=== PATIENT | female | born 1990 | race Caucasian/White ===

== ENCOUNTER 2021-01-11 13:03 | Inpatient (IN) | payer OTHER, SELFPAY ==
[2021-01-11] VITALS (21 sets, daily range): BP systolic 99–131; BP diastolic 61–89; PULSE 63–87; RESP 0–23; TEMP 36.7–37.2; O2SAT 98–100; BMI 20.8
--- NOTE | ~2021-01-11 | MR_ITS ---
EXAMINATION: MR lumbar spine wo con DATE: 01/13/2021 13:27 INDICATION: Paraparesis. Urinary retention. TECHNIQUE: Magnetic resonance imaging (MRI) of the lumbar spine was performed without intravenous con trast. Sequences included sagittal T2-weighted FSE, sagittal T2-weighted FS FSE, sagittal T1-weighted FSE, and axial T2-weighted FSE. COMPARISON: CT lumbar spine 01/11/2021 FINDINGS: There is 11 degrees levoscoliosis of lumbar spine. Vertebral body heights are normal. Inter vertebral disc heights are normal. The distal spinal cord signal intensity is normal. The conus medul verónica is at L1. The following disc levels are specifically discussed: L1-L2: The disc does not extend beyond the endplate margin. There is mild bilateral facet joint osteo arthritis. There is no neural foraminal stenosis. There is no central canal stenosis. L2-L3: The disc does not extend beyond the endplate margin. There is mild bilateral facet joint osteo arthritis. There is no neural foraminal stenosis. There is no central canal stenosis. L3-L4: The disc does not extend beyond the endplate margin. There is mild bilateral facet joint osteo arthritis. There is no neural foraminal stenosis. There is no central canal stenosis. L4-L5: The disc is mildly bulging. There is mild bilateral facet joint osteoarthritis. There is mild bilateral neural foraminal stenosis. There is mild central canal stenosis. L5-S1: The disc is bulging with superimposed left central extrusion. There is mild bilateral facet elaina int osteoarthritis. There is mild left neural foraminal stenosis. There is mild central canal stenosi s. IMPRESSION: 1. Mild lumbar spondylosis. 2. Lumbar levoscoliosis. Reviewed, dictated and finalized at location A. NO DEALER
--- NOTE | ~2021-01-11 | MR_ITS ---
EXAMINATION: MR cervical spine wo con EXAM DATE: 01/12/2021 13:26 INDICATION: Bilateral lower extremity weakness. TECHNIQUE: Multi-sequential, multiplanar MR images of the cervical spine were obtained without contra st. Axial T2, axial T2 MERGE sequence. Sagittal T1, T2, T2 fat saturation images also obtained. Th ere is no prior study for comparison. FINDINGS: Vertebral body and disc heights are well-maintained. Mildly low-lying cerebellar tonsils not meeting criteria for Chiari I malformation. The spinal cord signal intensity and intrinsic morphology is norm al. Mild cervical arthropathy without stenosis, central canal and neural foramen widely patent. Abdi kirti soft tissue is unremarkable. IMPRESSION: 1. Mildly low-lying tonsils, not meeting criteria for Chiari malformation. 2. Mild arthropathy. Reviewed, dictated and finalized at location B. EMENTATION PROJECT COORDINATOR
--- NOTE | ~2021-01-11 | MR_ITS ---
EXAMINATION: MR thoracic spine wo con EXAM DATE: 01/12/2021 13:26 INDICATION: Bilateral lower extremity weakness. TECHNIQUE: Multi-sequential, multiplanar MR images of the thoracic spine were obtained without contra st. Sagittal T1, T2, T2 fat saturation, axial T2 weighted images reviewed. There is no prior study for comparison. FINDINGS: There are scattered focal signal abnormalities consistent with hemangiomata, otherwise with out focal suspicious marrow signal abnormalities. The spinal cord signal intensity and intrinsic morp hology is normal. Thoracic neural foramen and central canal widely patent. Paraspinal soft tissue is unremarkable. Mild lower thoracic facet arthropathy. IMPRESSION: 1. Mild lower thoracic arthropathy. 2. Normal cord signal. Reviewed, dictated and finalized at location B. TURNING MACHINE FEEDER
--- NOTE | ~2021-01-11 | XR_ITS ---
EXAMINATION: XR lumbar puncture diagnostic DATE: 01/13/2021 12:32 INDICATION: Numbness of the legs. TECHNIQUE: The procedure including the risks, benefits, and alternatives was discussed with the patie nt. Risks discussed included spinal headache, cerebrospinal fluid leak, bleeding, and infection. The patient understood the risks and agreed to proceed. A timeout was performed to verify the patient' s name, date of , and procedure to be performed. The skin overlying the L3-L4 level was prepped and draped in usual sterile fashion. Subcutaneous 1% lidocaine was used for local anesthesia. A 22 gauge spinal needle was advanced under fluoroscopic guidance. The needle was removed and the entry s ite was cleaned and dressed. There were no immediate complications. Fluoroscopy exposure time was 0. 1 minutes. The total number of images was 1. FINDINGS: Real-time fluoroscopy demonstrates the needle at the L3-L4 level. The opening pressure was 19 cm water (Normal range is variably defined as 6-20 cm water and up to 25 cm water in obese patient s. Pressure >25 cm water is one of the modified Dandy criteria for idiopathic intracranial hypertensi on). 14 mL of clear, colorless fluid was collected in 4 tubes. IMPRESSION: 1. Successful fluoro-guided lumbar puncture. Reviewed, dictated and finalized at location A. BERRY GROWER
--- NOTE | ~2021-01-11 | CT_ITS ---
EXAMINATION: CT BRAIN W/O DATE: 01/11/2021 17:17 INDICATION: Lower extremity weakness TECHNIQUE: Computed tomography (CT) of the head was performed without intravenous contrast. The dose- length product was 529.67 mGy-cm. Automated exposure control and iterative reconstruction technique w ere employed. COMPARISON: No prior studies for comparison. FINDINGS: Normal brain parenchymal volume for age. Normal yoon-white differentiation. No acute intrac ranial hemorrhage, infarction, mass or mass effect. No ventriculomegaly or midline shift. Midline sagittal images demonstrate a normal corpus callosum, c raniovertebral junction and sella turcica. Basilar cisterns are patent. The cerebellar tonsils extend at least to the level of the foramen magnum and possibly below, although this area is not completely included. Paranasal sinuses and mastoids are pneumatized. No depressed skull fractures. IMPRESSION: 1. No acute intracranial abnormality. 2: Cerebellar tonsils are low-lying, although not completely evaluated. Consider correlation with MRI to exclude Chiari malformation. Reviewed, dictated and finalized at location A. WARE TOOLS ENGINEER IMPRESSION: 1. No acute intracranial abnormality. 2: Cerebellar tonsils are low-lying, although not completely evaluated. Conside r correlation with MRI to exclude Chiari malformation.
--- NOTE | ~2021-01-11 | XR_ITS ---
EXAMINATION: XR chest 2V EXAM DATE: 01/11/2021 13:33 INDICATION: Chest pain today with heaviness, shortness of breath. TECHNIQUE: Frontal and lateral projections of the chest obtained and reviewed. There is no prior jayden dy for comparison. FINDINGS: The lungs are clear. There are no pleural effusions. The cardiomediastinal silhouette is within normal limits. There is no pneumothorax suspected. Mild lower thoracic dextrocurvature. The re are cholecystectomy clips. IMPRESSION: No acute cardiopulmonary findings. Reviewed, dictated and finalized at location B. R TESTER
--- NOTE | ~2021-01-11 | MR_ITS ---
EXAMINATION: MR sacrum wo con DATE: 01/13/2021 13:27 INDICATION: Paraparesis. Urinary retention. TECHNIQUE: Magnetic resonance imaging (MRI) of the sacrum was performed without intravenous contrast. Sequences included coronal oblique (coronal to sacrum) T1-weighted FSE, T2-weighted FSE, and STIR FS E, axial oblique (axial to sacrum) T1-weighted FSE and T2-weighted FS FSE, and sagittal PD-weighted F SE. COMPARISON: CT lumbar spine 01/11/2021 FINDINGS: Bone alignment is normal. No fracture. There is mild lumbar spondylosis. The sacroiliac joints are no rmal. IMPRESSION: 1. Mild lumbar spondylosis. Reviewed, dictated and finalized at location A. ORNE MISSION SYSTEMS SUPERINTENDENT IMPRESSION: 1. Mild lumbar spondylosis.
--- NOTE | ~2021-01-11 | CT_ITS ---
EXAMINATION: CT lumbar spine wo con DATE: 01/11/2021 17:17 INDICATION: Lower extremity weakness. TECHNIQUE: Computed tomography (CT) of the lumbar spine was performed without intravenous contrast. A utomated exposure control and iterative reconstruction technique were employed. The dose-length produ ct was 268.44 mGy-cm. COMPARISON: None FINDINGS: There is 12 degrees levoscoliosis of lumbar spine. Vertebral body heights are normal. Inter vertebral disc heights are normal. The following disc levels are specifically discussed: L1-L2: The disc does not extend beyond the endplate margin. There is mild right and moderate left fac et joint osteoarthritis. There is no neural foraminal stenosis. There is no central canal stenosis. L2-L3: The disc does not extend beyond the endplate margin. There is mild bilateral facet joint osteo arthritis. There is no neural foraminal stenosis. There is no central canal stenosis. L3-L4: The disc does not extend beyond the endplate margin. There is mild bilateral facet joint osteo arthritis. There is no neural foraminal stenosis. There is no central canal stenosis. L4-L5: The disc is bulging. There is mild bilateral facet joint osteoarthritis. There is mild bilater al neural foraminal stenosis. There is mild central canal stenosis. L5-S1: The disc is bulging. There is mild bilateral facet joint osteoarthritis. There is mild bilater al neural foraminal stenosis. There is mild central canal stenosis. IMPRESSION: 1. Mild lumbar spondylosis. 2. Lumbar levoscoliosis. Reviewed, dictated and finalized at location A. T OPERATOR
--- NOTE | ~2021-01-11 | MR_ITS ---
EXAMINATION: MR brain/brain stem wo/w con EXAM DATE: 01/12/2021 13:26 INDICATION: Bilateral lower extremity weakness . TECHNIQUE: Magnetic resonance imaging (MRI) of the brain/brain stem obtained without contrast. Sagit felicita T1, axial diffusion, gradient echo (T2*), T1, T2, FLAIR sequences obtained. Patient was then inj ected with 10 cc intravenous Multihance contrast. Axial and coronal postcontrast T1 weighted sequence s obtained. There is no prior study for comparison. FINDINGS: Low-lying cerebellar tonsils not meeting criteria for Chiari I malformation. There are no a reas of restricted diffusion to suggest acute infarction. There is no acute hemorrhage seen on the T 2*, a hemosiderin sensitive sequence. No intraparenchymal brain mass. The ventricles are normal in s ize. There are no extra-axial collections. Flow voids are seen in the cerebral arteries on the T2-w eighted sequences consistent with their expected patency. The orbits are unremarkable. Soft tissue is unremarkable. There are no areas of abnormal enhancement on the postcontrast images. IMPRESSION: 1. Unremarkable brain MRI examination. Reviewed, dictated and finalized at location B. ENT BILLER
--- NOTE | 2021-01-11 13:09 | ECG_ITS ---
Measurements Intervals [place] Rate: 74 P: 82 WI: 138 QRS: 89 QRSD: 84 T: 38 QT: 386 QTc: 429 Interpretive Statements SINUS RHYTHM NONSPECIFIC T-WAVE ABNORMALITY- INFERIOR LEADS BORDERLINE ECG Electronically Signed On 01-11-2021 13:55:23 MECHANICAL EQUIPMENT TEST ENGINEER by Kulwinder Rodríguez D.O.
[2021-01-11] MEDS: ASPIRIN 81 MG CHEWABLE TABLET 324 MG PO (13:18)
[2021-01-11 13:21] LABS: Basophils Percent Auto 0.3 % (0.2-1.2); Eosinophils Absolute Auto 0.1 K/mm3 (0-0.3); Eosinophils Percent Auto 0.7 % (0-4.4); Hematocrit 40.9 % (37.0-47.0); Hemoglobin 13.6 g/dL (12.0-15.0); Immature Granulocyte Absolute 0.04 K/mm3 (0.00-0.031); Immature Granulocyte Percent A 0.6 % (0-0.5); Lymphocytes Absolute Auto 1.49 K/mm3 (0.9-3.2); Lymphocytes Percent Auto 20.7 % (18.3-44.2); Mean Corpuscular HGB Conc 33.3 g/dl (32-36); Mean Corpuscular Hemoglobin 31.7 pg (26-34); Mean Corpuscular Volume 95.3 fl (80-100); Mean Platelet Volume 9.7 fl (7.4-10.4); Monocytes Absolute Auto 0.4 K/mm3 (0.1-0.6); Monocytes Percent Auto 5.3 % (2.6-8.5); Neutrophils Absolute Auto 5.2 K/mm3 (1.3-6.7); Neutrophils Percent Auto 72.4 % (45.5-73.1); Platelet Count Result 265 k/mm3 (150-375); Red Blood Count 4.29 M/mm3 (4.2-5.4); Red Cell Distribution Width 12.5 % (11.5-14.5); White Blood Count 7.2 K/mm3 (4.5-10.0)
--- NOTE | 2021-01-11 13:31 | ED.CHESTPAIN ---
HPI - Chest Pain General Chief Complaint: Chest Pain <Alma Nix PA-C - Last Filed: 01/11/21 19:21> Stated Complaint: chest pain <Alma Nix PA-C - Last Filed: 01/11/21 19:21> Time Seen by Provider: 01/11/21 13:11 <Alma Nix PA-C - Last Filed: 01/11/21 19:21> Source: patient <JINNY Dunbar Last Filed: 01/11/21 19:21> Mode of arrival: ambulatory <JINNY Dunbar Last Filed: 01/11/21 19:21> Limitations: no limitations <Alma Nix PA-C - Last Filed: 01/11/21 19:21> History of Present Illness HPI narrative: This is a 30 year old female that presents to the ER for chest pain since this morning. Reports a substernal chest pressure that has been constant since onset. Does report it is worse with breathing. Reports some mild shortness of breath with this. Denies fever, cough or lower extremity edema. <Alma Nix PA-C - Last Filed: 01/11/21 19:21> Related Data Home Medications: Home Medications Medication Instructions Recorded Confirmed sertraline [Zoloft] 12.5 mg PO DAILY 01/11/21 <JINNY Dunbar Last Filed: 01/11/21 19:21> Allergies/Adverse Reactions: Allergies Allergy/AdvReac Type Severity Reaction Status Date / Time Sulfa (Sulfonamide Allergy Unknown Verified 01/11/21 13:14 Antibiotics) <JINNY Dunbar Last Filed: 01/11/21 19:21> Review of Systems Review of Systems: Narrative: CONSTITUTIONAL: Denies fever CARDIOVASCULAR: Reports chest pain. Denies palpitations, or edema. RESPIRATORY: Reports dyspnea. Denies cough <JINNY Dunbar Last Filed: 01/11/21 19:21> All systems reviewed & are unremarkable except as noted in HPI and below <JINNY Dunbar Last Filed: 01/11/21 19:21> PMFSH Past Medical History Medical History: Medical History (Updated 01/11/21 @ 18:48 by Alma Nix PA-C) History of depression <Alma Nix PA-C - Last Filed: 01/11/21 19:21> Surgical History Surgical History: Surgical History (Updated 01/11/21 @ 13:45 by Alma Nix PA-C) History of myringotomy History of tonsillectomy <Alma Nix PA-C - Last Filed: 01/11/21 19:21> Social History Social History: Social History (Updated 01/11/21 @ 13:45 by Alma Nix PA-C) Substance use: never <Alma Nix PA-C - Last Filed: 01/11/21 19:21> Exam Narrative: Exam Narrative: GENERAL: Well-appearing, well-nourished, and in no acute distress. HEAD: Normocephalic, atraumatic. EYES: EOMI. ENT: Nares clear, no rhinorrhea or epistaxis. Mucous membranes moist. Oropharynx without tonsillar hypertrophy exudate or other lesions. Bilateral TMs pearly yoon non-bulging NECK: Supple. No adenopathy or masses. No carotid bruits or JVD CHEST: Clear to auscultation. No respiratory distress. No wheezes rales or rhonchi HEART: Regular rate and rhythm. No murmur heard. Normal peripheral pulses. EXTREMITIES: Normal range of motion. No edema. SKIN: Warm, dry, no rash. NEURO: No focal deficits. Alert and oriented x3. PSYCH: Anxious appearing <Alma Nix PA-C - Last Filed: 01/11/21 19:21> Course DROP WIRE BUILDER/PA Physician Supervision For this patient encounter, I reviewed the DROP WIRE BUILDER or PA documentation, treatment plan, and medical decision making; and I had [id number] time with this patient. Patient complains of bilateral leg weakness and numbness starting today. Patient is not lifting left of stretcher. The weakness is possibly functional. Will admit for observation. <Lupe Rico MD - Last Filed: 01/11/21 18:59> Consultations Consultation #1: Spoke with Dr. Pulido about patient and workup. Recommends MRI of the brain, cervical spine, and thoracic spine. He will consult on patient. <Alma Nix PA-C - Last Filed: 01/11/21 19:21> Date: 01/11/21 <Alma Nix PA-C - Last Filed: 01/11/21 19:21> Time: 18:20 <Alma Nix PA-C - Last
[2021-01-11 13:34] LABS: Prothrombin Time 13.7 Seconds (11.1-14.7)
[2021-01-11 13:35] LABS: Anion Gap 5 mmol/L (8-16); Blood Urea Nitrogen 13 mg/dL (7-17); Calcium 9.2 mg/dL (8.4-10.2); Carbon Dioxide 28 mmol/L (22-30); Chloride 107 mmol/L (98-107); Estimated CRCL calculation 92 ml/min; Estimated Glomerular Filt Rate > 60; Glucose 104 mg/dL (65-105); Partial Thromboplastin Time 30.9 SECONDS (22.3-36.8); Potassium 3.8 mmol/L (3.4-5.0); Sodium 140 mmol/L (137-145)
[2021-01-11 13:45] LABS: Troponin I < 0.012 ng/mL (0.000-0.034)
[2021-01-11] MEDS: KETOROLAC 15 MG/ML VIAL (*BKC) IV PUSH (13:47)
[2021-01-11 13:59] LABS: D Dimer 0.27 ug/mL (<0.48)
[2021-01-11 14:10] LABS: Alanine Aminotransferase 12 U/L (4-35); Albumin Level 4.8 g/dL (3.5-5.1); Alkaline Phosphatase 67 U/L (38-126); Aspartate Amino Transferase 23 U/L (14-36); Bilirubin,Total 0.7 mg/dL (0.2-1.3); Lipase 72 U/L (23-300)
--- NOTE | 2021-01-11 16:04 | PC.NURSE ---
3 hr troponin sent to lab.
--- NOTE | 2021-01-11 16:10 | PC.NURSE ---
Meds given po. Pt states at this time she is unable to feel my legs . Pt will not, states is unable, to wiggle toes or follow commands for pushes and pulls. Pt states this has occurred in the past but isn't sure what caused it then either. HUNTER Mancuso, made aware.
[2021-01-11] MEDS: ACETAMINOPHEN 500 MG TABLET 1000 MG PO (16:13)
[2021-01-11 16:33] LABS: Troponin I < 0.012 ng/mL (0.000-0.034)
--- NOTE | 2021-01-11 18:13 | PC.NURSE ---
Pt resting on stretcher. States still is unable to use her legs. States the last time my legs went numb she spent a week in the hospital learning to walk again . States this was at [facility].
--- NOTE | 2021-01-11 18:19 | PC.NURSE ---
Awaiting return call from Dr. Blanco
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
--- NOTE | 2021-01-11 19:10 | PC.NURSE ---
Assumed care of pt at this time, pt is alert and upright on stretcher, hospitalist at bedside discussing POC. Pt on tele monitor, VSS.
--- NOTE | 2021-01-11 20:20 | PC.NURSE ---
This patient, Lavelle Waddell, was admitted to [facility] Surg Room 316-01. Patient/family oriented to hospital policies and general routines including ID bracelet, bed and alarms, visiting hours, pain management, procedures, bathroom and other care routines, personal items, smoking policy, room service/diet, and visiting hours. Information on how to activate the Rapid Response Team has been discussed. Patient/Family are encouraged to report perceived risks to care and to ask questions if they do not understand what they are told or what they should do.
[2021-01-12] VITALS (7 sets, daily range): BP systolic 99–106; BP diastolic 54–68; PULSE 58–104; RESP 16; TEMP 36.2–37.1; O2SAT 96–100
[2021-01-12] MEDS: ALPRAZolam (*CRX) 0.25 MG TABLET PO (11:06)
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
--- NOTE | 2021-01-12 14:58 | PM.IMPN ---
Progress Note: A&P Assessment and Plan (1) Bilateral leg weakness: Code(s): R29.898 - Other symptoms and signs involving the musculoskeletal system Status: Acute Assessment and Plan: This developed while the patient was in the emergency department and suspect this may be psychosomatic as MRI of brain, c-spine, and t-spine and CT lumbar spine grossly unremarkable for acute findings. Dr. Pulido (neurology) was consulted by the ED provider and appreciate input. Discussed with him today and recommends lumbar puncture for further evaluation Lumbar puncture to be done per Neurology Will do PT/OT Monitor overnight (2) Abnormal brain CT: Code(s): R90.89 - Other abnormal findings on diagnostic imaging of central nervous system Status: Acute Assessment and Plan: Brain CT shows low lying cerebellar tonsils although inadequately evaluated. Brain MRI today shows mildly low lying cerebellar tonsils, but does not meet criteria for Chiari malformation F/u as outpatient (3) Atypical chest pain: Code(s): R07.89 - Other chest pain Status: Acute Assessment and Plan: Most likely related to anxiety. EKGs unremarkable and troponins are negative x2. Tele was grossly unremarkable with sinus rhythm D/c tele (4) Depression with anxiety: Code(s): F41.8 - Other specified anxiety disorders Status: Inactive Assessment and Plan: Patient was recently started on Zoloft however stopped taking it due to side effects. She obviously suffers from pretty significant depression and anxiety, denying harmful thoughts this stay. Encouraged her to continue seeing her counselor and to follow-up as soon as possible with her primary care provider to see if she may be started on a different medication. Subjective Date/time seen: 01/12/21 14:58 Interval history: Patient is a 30-year-old female with history of depression and anxiety with history of suicide attempt and remote history of self-mutilation who is seen in follow up for further evaluation for sudden onset of paraparesis. Patient feels about the same as yesterday. She describes decrease sensation in lower legs up to hips; describes severe pain/burning/tingling as if she had been sitting all day. No symptoms of saddle anesthesia or loss of bowel or bladder function. Otherwise no complaints. Denies recent illness/infection, f/c/s, headaches, dizziness, lightheadedness, changes in v/h, current cp/palpitations, sob/cough, n/v/d/c, abd pain, changes in BMs, dysuria Review of Systems Review of Systems: All systems reviewed & are unremarkable except as noted in HPI and below Exam Narrative: Exam Narrative: General: Patient resting supine in bed in no acute distress. HEENT: Normocephalic, EOMI, oral mucosa moist. Cardiovascular: Rate and rhythm are regular. No notable murmur, rub, or gallop. Respiratory: Lungs clear to auscultation all marti. Non-labored breathing. Abdomen: Soft, non-tender, non-distended, bowel sounds present. Extremities: Peripheral pulses intact. No edema. Neuro: A&Ox4. Speech is clear. No facial asymmetry. Strength in upper extremities is 5/5. She does not move her lower extremities and allows them to fall to gravity when passively lifted/dropped. Objective Data Vital Signs Vital Signs: Last Vital Signs Temp 97.1 F L 01/12/21 06:00 Pulse 104 H 01/12/21 11:08 Resp 16 01/12/21 06:00 BP 99/54 L 01/12/21 06:00 Pulse Ox 100 01/12/21 06:00 Intake/Output Intake/Output: Intake & Output 01/09/21 01/10/21 01/11/21 01/12/21 23:59 23:59 23:59 23:59 Intake Total 220 Output Total 900 Balance -680 Meds/Results Medications: Active Medications Generic Name Dose Route Start Last Admin Trade Name Freq PRN Reason Stop Dose Admin Alpraz
[2021-01-13] VITALS (7 sets, daily range): BP systolic 100–116; BP diastolic 49–73; PULSE 61–89; RESP 16–20; TEMP 36.5–37.2; O2SAT 96–100
[2021-01-13] MEDS: ACETAMINOPHEN 325 MG TABLET 650 MG PO ×2 (03:57→13:56)
--- NOTE | 2021-01-13 05:39 | PC.NURSE ---
MD Cook notified that the patient has been unable to void. Has not voided since yesterday and greater then 12 hrs. Pt states that she does not feel the need to urinate. RN bladder scanned patient and bladder scan showed greater then 450ml in bladder. Patient assisted to commode, still unable to urinate. MD Cook stated okay to place a murguia. 550ml output from murguia.
--- NOTE | 2021-01-13 08:43 | PM.IMPN ---
Progress Note: A&P Assessment and Plan (1) Bilateral leg weakness: Code(s): R29.898 - Other symptoms and signs involving the musculoskeletal system Status: Acute Assessment and Plan: This developed while the patient was in the emergency department and suspect this may be psychosomatic as MRI of brain, c-spine, and t-spine and CT lumbar spine grossly unremarkable for acute findings. Retention and vague sensation abnormalities in inner thighs of concern. LOUISA of concern but less likely given CT lumbar spine findings; will consider lumbar MRI if Neurology agreeable. Guillain [place] on differential, although seems less likely given acute onset of symptoms and not progressive. Dr. Pulido (neurology) was consulted by the ED provider and appreciate input. She is to have Lumbar Puncture today per Neurology. Lumbar puncture to be done per Neurology Will discuss further diagnostics, including lumbar spine MRI with Neurology Will do voiding trial today Will do PT/OT Monitor overnight (2) Abnormal brain CT: Code(s): R90.89 - Other abnormal findings on diagnostic imaging of central nervous system Status: Acute Assessment and Plan: Brain CT shows low lying cerebellar tonsils although inadequately evaluated. Brain MRI today shows mildly low lying cerebellar tonsils, but does not meet criteria for Chiari malformation F/u as outpatient (3) Atypical chest pain: Code(s): R07.89 - Other chest pain Status: Acute Assessment and Plan: Most likely related to anxiety. EKGs unremarkable and troponins are negative x2. Tele was grossly unremarkable with sinus rhythm D/c tele (4) Depression with anxiety: Code(s): F41.8 - Other specified anxiety disorders Status: Inactive Assessment and Plan: Patient was recently started on Zoloft however stopped taking it due to side effects. She obviously suffers from pretty significant depression and anxiety, denying harmful thoughts this stay. During stay, she was encouraged to continue seeing her counselor and to follow-up as soon as possible with her primary care provider to see if she may be started on a different medication. Subjective Date/time seen: 01/13/21 08:43 Interval history: Patient is a 30-year-old female with history of depression and anxiety with history of suicide attempt and remote history of self-mutilation who is seen in follow up for further evaluation for sudden onset of paraparesis. Patient feels about the same as yesterday, although she was noted to be retaining and had Mederos placed. She describes throbbing and decreased sensation throughout her LE, but also notices tingling in her inner thighs; denies overt saddle anesthesia or bowel incontinence. Her decreased sensation is still from her belt line down to feet. She notes blunted sensation b/l. She reports having an MRI of lumbar spine roughly 6 months ago but does not think there were any alarming findings on this. She has a headache today. Otherwise no complaints. Denies recent illness/infection, f/c/s, dizziness, lightheadedness, changes in v/h, current cp/palpitations, sob/cough, n/v/d/c, abd pain Review of Systems Review of Systems: All systems reviewed & are unremarkable except as noted in HPI and below Exam Narrative: Exam Narrative: General: Patient resting supine in bed in no acute distress, lights off, hands covering face. Appears comfortable although covers eyes from the windows during conversation HEENT: Normocephalic, EOMI, oral mucosa moist. Cardiovascular: Rate and rhythm are regular. No notable murmur, rub, or gallop. Respiratory: Lungs clear to auscultation all marti. Non-labored breathing. Abdomen: Soft, non-tender, non-distended, bowel sounds present. Extremities: Peripheral pulses intact. No
[2021-01-13 13:02] LABS: Glucose CSF 49 mg/dL (40-70); Total Protein CSF 28 mg/dL (12-60)
[2021-01-13 13:17] LABS: Appearance CSF Clear (Clear); CSF source CSF
[2021-01-13 13:18] LABS: Color CSF Colorless (Colorless); Nucleated Cell CSF 0 /uL (0-5); Red Blood Cell CSF 0 (0-2)
--- NOTE | 2021-01-13 14:15 | WPDNEUROPN ---
Progress Note: A&P Assessment and Plan (1) Abnormal brain CT: Code(s): R90.89 - Other abnormal findings on diagnostic imaging of central nervous system Status: Acute (2) Atypical chest pain: Code(s): R07.89 - Other chest pain Status: Acute (3) Bilateral leg weakness: Code(s): R29.898 - Other symptoms and signs involving the musculoskeletal system Status: Acute Additional Plan Paresis await the spinal fluid studies and further discussion with the patient Review of Systems Review of Systems: All systems reviewed & are unremarkable except as noted in HPI and below Objective Data Vital Signs Vital Signs: Vital Signs - 24 hr 01/12/21 22:00 01/13/21 01:30 01/13/21 06:00 Temperature 36.4 C L 37.1 C 36.7 C Pulse Rate 80 84 75 Respiratory Rate 16 20 16 Blood Pressure 106/58 L 109/65 110/49 L Pulse Oximetry 96 99 96 01/13/21 10:03 01/13/21 11:49 01/13/21 12:20 Temperature Pulse Rate 75 63 Respiratory Rate 20 20 Blood Pressure 109/73 116/69 Pulse Oximetry 97 100 97 Intake/Output Intake/Output: Intake & Output 01/10/21 01/11/21 01/12/21 01/13/21 23:59 23:59 23:59 23:59 Intake Total 670 100 Output Total 900 Balance -230 100 Meds/Results Medications: Active Medications Generic Name Dose Route Start Last Admin Trade Name Freq PRN Reason Stop Dose Admin Acetaminophen 650 mg 01/13/21 03:14 01/13/21 13:56 Acetaminophen 325 Mg Tablet PO 650 mg Q4H PRN Administration Headache Alprazolam 0.25 mg 01/12/21 08:38 01/12/21 11:06 Alprazolam (*Crx) 0.25 Mg Tablet PO 0.25 mg ONCE PRN Administration Anxiety Radiology Results: ITS Impressions Chest X-Ray 01/11/21 13:34 IMPRESSION: No acute cardiopulmonary findings. Lumbar Spine CT 01/11/21 17:18 IMPRESSION: 1. Mild lumbar spondylosis. 2. Lumbar levoscoliosis. Head CT 01/11/21 17:20 IMPRESSION: 1. No acute intracranial abnormality. 2: Cerebellar tonsils are low-lying, although not completely evaluated. Consider correlation with MRI to exclude Chiari malformation. Brain MRI 01/12/21 13:57 IMPRESSION: 1. Unremarkable brain MRI examination. Cervical Spine MRI 01/12/21 14:06 IMPRESSION: 1. Mildly low-lying tonsils, not meeting criteria for Chiari malformation. 2. Mild arthropathy. Thoracic Spine MRI 01/12/21 14:08 IMPRESSION: 1. Mild lower thoracic arthropathy. 2. Normal cord signal. Lumbar Puncture Fluoroscopy 01/13/21 12:36 IMPRESSION: 1. Successful fluoro-guided lumbar puncture. Lumbar Spine MRI 01/13/21 13:59 IMPRESSION: 1. Mild lumbar spondylosis. 2. Lumbar levoscoliosis. Sacrum/Coccyx MRI 01/13/21 14:03 IMPRESSION: 1. Mild lumbar spondylosis. Labs Labs: Laboratory Results - last 24 hr 01/13/21 01/13/21 12:03 12:03 CSF Source Csf CSF Appearance Clear CSF Color Colorless CSF RBC 0 CSF Tot Nucleated Cells 0 CSF Monocytes CSF Glucose 49 CSF Total Protein 28 Quality VTE Prophylaxis VTE prophylaxis: mechanical ordered
--- NOTE | 2021-01-13 23:27 | PC.NURSE ---
Arvin Alegre and I got Aeriel up to attempt to void after very little output noted today. She got up to commode with 2x assist, legs shaky, said feeling of tv static snow in legs... was not able to describe it further, stated she could feel us touching her feet and had weak push, she voided 400ml of dark urine on the commode after approximately 15 minutes of trying, we kept the sink on and left the room for privacy. -AEW RN
[2021-01-14 06:00] VITALS: BP 108/63; PULSE 69; RESP 20; TEMP 36.9; O2SAT 98
--- NOTE | 2021-01-14 09:22 | PCPTNOTE ---
Attempted PT treatment. Pt sleeping and unable to arouse. Ruth ESPINOZA aware. Will try again later today.
[2021-01-14 09:30] VITALS: BP 100/55; PULSE 81; RESP 14; TEMP 35.8; O2SAT 98
--- NOTE | 2021-01-14 11:19 | PM.IMPN ---
Progress Note: A&P Assessment and Plan (1) Bilateral leg weakness: Code(s): R29.898 - Other symptoms and signs involving the musculoskeletal system Status: Acute Assessment and Plan: This developed while the patient was in the emergency department and suspect this may be psychosomatic as MRI of brain and entire spine grossly unremarkable for acute findings. Lumbar puncture per Dr. Pulido rec is grossly unremarkable with some results pending; gram stain notes gram positive cocci, felt to be likely contaminate. She has urinated since Mederos removed. LOUISA on differential but less likely given imaging results. Guillain [place] on differential, although seems less likely given acute onset of symptoms and not progressively worsening. Dr. Pulido (neurology) was consulted by the ED provider and appreciate input. Discussed with him who will talk to patient today about recent results; considering discharge home. CC also following for any outpatient psych needs Continue PT/OT Possible discharge today if okay from neuro standpoint (2) Abnormal brain CT: Code(s): R90.89 - Other abnormal findings on diagnostic imaging of central nervous system Status: Acute Assessment and Plan: Brain CT shows low lying cerebellar tonsils although inadequately evaluated. Brain MRI today shows mildly low lying cerebellar tonsils, but does not meet criteria for Chiari malformation F/u as outpatient (3) Atypical chest pain: Code(s): R07.89 - Other chest pain Status: Acute Assessment and Plan: Most likely related to anxiety. EKGs unremarkable and troponins are negative x2. Tele was grossly unremarkable with sinus rhythm (4) Depression with anxiety: Code(s): F41.8 - Other specified anxiety disorders Status: Inactive Assessment and Plan: Patient was recently started on Zoloft however stopped taking it due to side effects. She obviously suffers from pretty significant depression and anxiety, denying harmful thoughts this stay. No SI/HI ideations or thoughts of harming self/others currently During stay, she was encouraged to continue seeing her counselor and to follow-up as soon as possible with her primary care provider to see if she may be started on a different medication. Subjective Date/time seen: 01/14/21 11:19 Interval history: Patient is a 30-year-old female with history of depression and anxiety with history of suicide attempt and remote history of self-mutilation who is seen in follow up for further evaluation for sudden onset of paraparesis. Received call from nursing this am stating patient was unarousable with stable VS and reactive pupils, however, prior to arrival to bedside, nursing reports patient now awake after ammonia placed under nose; she was working with therapy at time of visit. Patient thinks her legs feel like TV static ; when asked if this is better or worse then yesterday, she tells me I'd rather take numb then this . When asked further, she notes maybe more increased sensation in her legs. The numbness/tingling still is at her belt line. She still feels constipated. Nursing notes show she urinated ~400 ccs last night. She does mention last night was rough mentally ; upon further questioning she denies any SI/HI or thoughts of harming self/others currently. She notes she does have a counselor she follows up with. Other symptoms today include racing heart, diaphoresis, and some dizziness, but no cp changes in v/h, severe headache/neck pain today. She does have some mild abdominal pain in left abdomen and notes she is constipated, but does not wish to have a laxative. Otherwise no complaints. Denies recent f/c, sob/cough, n/v/d. Review of Systems Review of Systems: All systems reviewed & are unremarkable except as noted in H
[2021-01-14 14:19] VITALS: BP 100/72
--- NOTE | 2021-01-14 14:28 | PM.DS ---
DS: Admitting Diagnosis Admitting Diagnosis Admitting Diagnosis: CP, paraparesis/LE weakness DS: Discharge Diagnosis Discharge Diagnosis (1) Bilateral leg weakness: Code(s): R29.898 - Other symptoms and signs involving the musculoskeletal system Status: Acute Assessment and Plan: This developed while the patient was in the emergency department and suspect this may be psychosomatic as MRI of brain and entire spine grossly unremarkable for acute findings. Lumbar puncture per Dr. Pulido rec is grossly unremarkable with some results pending; gram stain notes gram positive cocci, felt to be likely contaminate. She has urinated since Mederos removed. LOUISA on differential but less likely given imaging results. Guillain [place] on differential, although seems less likely given acute onset of symptoms and not progressively worsening. Dr. Pulido (neurology) was consulted by the ED provider and appreciate input. Discussed with him who will talk to patient today about recent results; considering discharge home. CC also following for any outpatient psych needs Continue PT/OT Possible discharge today. Okay from Neuro standpoint (2) Abnormal brain CT: Code(s): R90.89 - Other abnormal findings on diagnostic imaging of central nervous system Status: Acute Assessment and Plan: Brain CT shows low lying cerebellar tonsils although inadequately evaluated. Brain MRI today shows mildly low lying cerebellar tonsils, but does not meet criteria for Chiari malformation F/u as outpatient (3) Atypical chest pain: Code(s): R07.89 - Other chest pain Status: Acute Assessment and Plan: Most likely related to anxiety. EKGs unremarkable and troponins are negative x2. Tele was grossly unremarkable with sinus rhythm (4) Depression with anxiety: Code(s): F41.8 - Other specified anxiety disorders Status: Inactive Assessment and Plan: Patient was recently started on Zoloft however stopped taking it due to side effects. She obviously suffers from pretty significant depression and anxiety, denying harmful thoughts this stay. No SI/HI ideations or thoughts of harming self/others currently During stay, she was encouraged to continue seeing her counselor and to follow-up as soon as possible with her primary care provider to see if she may be started on a different medication. DS: Summary Hospital Course Reason for hospitalization: CP, lower extremity weakness Hospital Course: Date of arrival: 01/11/21 Date of discharge: 01/14/21 Patient is a 30-year-old female with history of depression and anxiety with history of suicide attempt and remote history of self-mutilation who presented to the emergency department on 01/11 with complaints of chest pain. While sitting at her desk at work today she developed sudden onset of substernal chest pressure and fleeting sharp pains under her left breast. While in the ED, work up was grossly unremarkable. Prior to discharge from the ED, patient suddenly developed onset of lower extremity weakness with inability to move her legs at all and slight numbness/blunted sensation. Head Ct was unremarkable. Dr. Pulido (neurology) consulted for further input. Patient admitted under this setting. Please see H&P for further details. Patient was admitted to the hospitalist service for further management/treatment. During hospital course, brain and entire spine MRI was grossly unremarkable for etiology of her sudden onset of symptoms. Guillian [place] syndrome was of concern, but felt to be less likely given sudden onset and non-progressive nature of symptoms. Lumbar puncture obtained per request of Dr. Pulido and preliminary results were, again, grossly unremarkable. It was felt likely that her symptoms were likely psychosomatic in nature. She de
[2021-01-14] MEDS: ACETAMINOPHEN 325 MG TABLET 650 MG PO (15:32)
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
--- NOTE | 2021-01-14 16:03 | WPDNEUROPN ---
Progress Note: A&P Assessment and Plan (1) Abnormal brain CT: Code(s): R90.89 - Other abnormal findings on diagnostic imaging of central nervous system Status: Acute (2) Atypical chest pain: Code(s): R07.89 - Other chest pain Status: Acute (3) Bilateral leg weakness: Code(s): R29.898 - Other symptoms and signs involving the musculoskeletal system Status: Acute Additional Plan stable long discussion about the pros and cons of the neurological deficit without any obvious etiology patient will benefit from the physical therapy thorough counseling was provided Review of Systems Review of Systems: All systems reviewed & are unremarkable except as noted in HPI and below Exam Const: General: cooperative, healthy appearing, comfortable and no acute distress Nutritional Appearance: average body habitus Limitations: no limitations Eyes: General: appearance normal, both eyes and all related structures Alignment and Position: alignment normal Periorbital: periorbital findings normal Eyelids: eyelids normal Conjunctivae: conjunctivae normal Sclera: sclerae normal Cornea: corneas normal Pupils: Equal, round and reactive pupils present EOM: EOMs intact bilaterally Neck: Neck: full ROM and no lymphadenopathy Chest: Chest palpation & inspection: normal inspection of the chest Cardio: Rate: regular rate Rhythm: regular rhythm GI: Auscultation: normal bowel sounds Skin: General skin exam: no rashes or lesions noted Neuro: General: patient oriented x3 Cranial nerves: Yes CN's II-XII intact bilaterally Cognition (Neuro): normal cognition Speech: normal speech Gait exam (Neuro): Antalgic gait present, Ataxic gait present, Wide-based gait present and Assisted gait required Motor exam (neuro): Abnormal motor strength present Sensory Exam: Normal double simultaneous stimulation for sensation Deep tendon reflexes (DTR's): Right triceps reflex intensity grade: 1+, Left triceps reflex intensity grade: 1+, Rt Biceps (C5, C6): 1+, Left biceps reflex intensity grade: 1+, Right brachioradialis reflex intensity grade: 1+, Left brachioradialis reflex intensity grade: 1+, Right patellar reflex intensity grade: 1+, Left patellar reflex intensity grade: 1+, Right ankle reflex intensity grade: 1+ and Left ankle reflex intensity grade: 1+ Plantar Reflex Responses: downgoing: bilateral Psych: Appearance: well kempt Mental Status: mental status grossly normal Speech and movement: Normal speech and movement present Affect: normal affect Attitude: cooperative Thought process: Normal thought process present Objective Data Vital Signs Vital Signs: Vital Signs - 24 hr 01/13/21 22:00 01/14/21 06:00 01/14/21 09:30 Temperature 36.5 C 36.9 C 35.8 C L Pulse Rate 89 69 81 Respiratory Rate 16 20 14 Blood Pressure 106/66 108/63 100/55 L Pulse Oximetry 100 98 98 01/14/21 14:19 Temperature Pulse Rate Respiratory Rate Blood Pressure 100/72 Pulse Oximetry Intake/Output Intake/Output: Intake & Output 01/11/21 01/12/21 01/13/21 01/14/21 23:59 23:59 23:59 23:59 Intake Total 670 220 420 Output Total 900 200 400 Balance -230 20 20 Meds/Results Medications: Active Medications Generic Name Dose Route Start Last Admin Trade Name Freq PRN Reason Stop Dose Admin Acetaminophen 650 mg 01/13/21 03:14 01/14/21 15:32 Acetaminophen 325 Mg Tablet PO 650 mg Q4H PRN Administration Headache Alprazolam 0.25 mg 01/12/21 08:38 01/12/21 11:06 Alprazolam (*Crx) 0.25 Mg Tablet PO 0.25 mg ONCE PRN Administration Anxiety Radiology Results: ITS Impressions Chest X-Ray 01/11/21 13:34 IMPRESSION: No acute cardiopulmonary findings. Lumbar Spine CT 01/11/21 17:18 IMPRESSION: 1. Mild lumbar spondylosis. 2. Lumbar levoscoliosis. Head CT 01/11/21 17:20 IMPRESSION: 1. No acute intracranial abnormality. 2: Cerebellar tonsils are low-lying, although not comple
[2021-01-21 06:36] LABS: Albumin, CSF 19.7 mg/dL (8.0-42.0); Albumin, Serum 4.3 g/dL (3.5-5.2); IgG Index, CSF 0.51 (<0.66); IgG, CSF 2.4 mg/dL (0.8-7.7); Immunoglobulin G, Serum 1020 mg/dL (600-1640); Myelin Basic Protein, CSF <2.0 mcg/L (2.0-4.0); Synthesis Rate IgG, CSF -2.3 mg/24 h (-9.9-3.3)
== END 2021-01-14 16:20 | disposition home health service (06) | DRG 556 ==
LOC: ANHED 18:48 → ANH3MEDSUR 19:39
PROVIDERS: Physician Assistant; Psychiatry & Neurology Neurology; Admitting Provider Family Medicine; Emergency Provider Emergency Medicine; Visit Provider Family Medicine
DX: R29.898 Other symptoms and signs involving the musculoskeletal system (principal); R90.89 Other abnormal findings on diagnostic imaging of central nervous system; R07.89 Other chest pain; F41.8 Other specified anxiety disorders; Z88.2 Allergy status to sulfonamides; Z88.8 Allergy status to other drugs, medicaments and biological substances; Z91.5 Personal history of self-harm
CPT/HCPCS: 36415; 62328; 70450; 70553; 71046; 72131; 72141; 72146; 72148; 72195; 80048; 80076; 81025; 82040; 82042; 82607; 82784; 82945; 83690; 83873; 83916; 84157; 84443; 84484; 85025; 85380; 85610; 85730; 87015; 87070; 87116; 87206; 89051; 93005; 96374; 97110; 97161; 97165; 97530; 99285; A9270; A9577; G0378; J1885